=== PATIENT | female | born 1955 | race Caucasian/White ===

== ENCOUNTER → 2017-06-17 | Outpatient (CLI) | payer BC ==
[~2017-06-17] MED LIST: ADDERALL20 MG PO; EFFEXOR75 MG PO; NEXIUM20 MG PO; NITROSTAT0.4 MG SL; OMEPRAZOLE40 MG PO; WELLBUTRIN PO; WELLBUTRIN SR150 MG PO; ZITHROMAX PO
--- NOTE | ~2017-06-17 | US37 ---
[facility] A Service of [facility] & [facility] RADIOLOGY TEXT RESULTS PATIENT: JACKIE BUSTILLO LOCATION: [facility] : 51 UNIT #: [id number] AGE: [address]: Jorge Alva MD SEX: F ORDER DR: [id number] [address] [address] [id number] O MR#: [id number] Acc #: [id number] NAME: JACKIE BUSTILLO : 1955 SEX: F STUDY DATE/TIME: 06/17/2017 13:05 UNIT: [facility] ROOM: STUDY DESCRIPTION: US Carotid W/Doppler Bilateral Attending Physician: Jorge Alva M.D. Referring Physician: Jorge Alva M.D. Ordering Physician: Jorge Alva M.D. Primary Care Physician: Jorge Alva M.D. MEDICAL IMAGING REPORT This report is preliminary unless electronic signature is present. EXAM Bilateral carotid Doppler, 06/17/2017 REASON FOR EXAM TIA FINDINGS The right common, internal and external carotid arteries are widely patent, without plaque or intimal thickening. Velocity of the common carotid artery is 61 cm/sec. Peak systolic velocity of the right proximal internal carotid artery is 41 cm/sec with an end-diastolic velocity of 12 cm/sec for an ICA/CCA ratio of 0.67. External carotid artery had a velocity of 60 cm/sec. The vertebral artery is visualized with antegrade flow. The left common carotid, internal carotid and external carotid arteries are patent, without plaque or intimal thickening throughout. Velocity of the common carotid artery is 59 cm/sec. Peak systolic velocity of the left proximal internal carotid artery is 59 cm/sec with an end-diastolic velocity of 20 cm/sec for an ICA/CCA ratio of 1.0. External carotid artery had a velocity of 62 cm/sec. The vertebral artery is visualized with antegrade flow. IMPRESSION 1. Normal appearance of the right and left internal carotid arteries. 2. No stenosis of the external carotid arteries. 3. Antegrade flow of the vertebral arteries. Dictated by... Michelle Xiao M.D. [facility]. [facility] A Service of [facility] & [facility] RADIOLOGY TEXT RESULTS PATIENT: JACKIE BUSTILLO LOCATION: [facility] : 53 UNIT #: [id number] AGE: [address]: Jorge Alav MD SEX: F ORDER DR: THIS IS AN ELECTRONICALLY VERIFIED REPORT Michelle Xiao M.D. at 06/18/2017 10:33 AM FPN/antione TD: 06/17/2017 20:33 JOB #: [id number] MEDICAL IMAGING REPORT Page 1 of 1
== END | disposition home or self-care (01) ==
LOC: SNIV 13:28
DX: G45.9 Transient cerebral ischemic attack, unspecified (principal)
CPT/HCPCS: 93880

== ENCOUNTER → 2017-06-20 | Outpatient (CLI) | payer BC ==
--- NOTE | ~2017-06-20 | CR63 ---
[facility] A Service of [facility] RADIOLOGY TEXT RESULTS PATIENT: JACKIE BUSTILLO LOCATION: [facility] : 53 UNIT #: [id number] AGE: [address]: Hollis Brennan MD SEX: F ORDER DR: [id number] [facility] [address] [place] [place], [place] [address] [id number] O MR#: [id number] Acc #: [id number] NAME: JACKIE BUSTILLO : 1955 SEX: F STUDY DATE/TIME: 06/20/2017 11:05 UNIT: [facility] ROOM: STUDY DESCRIPTION: CR Chest 2 View Attending Physician: Hollis Brennan M.D. Referring Physician: Hollis Brennan M.D. Ordering Physician: Hollis Brennan M.D. Primary Care Physician: Jorge Alva M.D. MEDICAL IMAGING REPORT This report is preliminary unless electronic signature is present EXAM Chest 06/20/2017 [facility] HISTORY 62-year-old woman, short of air. Possible congestive heart failure; recent bout with poison lena; symptoms x2 days. COMPARISON Chest 01/26/2016 FINDINGS PA and lateral chest views show normal heart size. Hilar structures and mediastinal contours are preserved. Bilateral lungs are expanded and clear. There is no evidence for congestion or heart failure. I see no effusion. IMPRESSION Negative chest. No acute finding. Dictated by... Jamal Navarro M.D. THIS IS AN ELECTRONICALLY VERIFIED REPORT Jamal Navarro M.D. at 06/23/2017 8:08 AM JBB/mildred TD: 06/20/2017 16:32 JOB #: [id number] MEDICAL IMAGING REPORT Page 1 of 1 COPY
== END | disposition home or self-care (01) ==
LOC: CRAD 10:57
DX: R06.02 Shortness of breath (principal); R05 Cough
CPT/HCPCS: 71020